=== PATIENT | male | born 1955 | race Caucasian/White ===

== ENCOUNTER → 2017-04-13 | Outpatient (CLI) | payer OTHER ==
[~2017-04-13] MED LIST: ADULT LOW DOSE81 MG PO; CARDURA2 MG PO; CLARITIN10 MG PO; HYDROCODON-ACE1 EACH PO; IBUPROFEN 200200 M1 PO; LIPITOR40 MG PO; LOSARTAN POTAS100 MG PO; METOPROLOL SUCC50 MG PO; OMEPRAZOLE20 M2; OMEPRAZOLE20 M2 PO; TAGAMETTAB PO; TOPROL XL50 MG
[2017-04-13 07:38] LABS: CREATININE 1.2 mg/dL (0.7-1.3)
== END ==
LOC: CAT 06:36
PROVIDERS: Internal Medicine
DX: K44.9 Diaphragmatic hernia without obstruction or gangrene (principal); R07.9 Chest pain, unspecified